=== PATIENT | male | born 1990 | race Caucasian/White ===

== ENCOUNTER 2018-11-14 15:37 | Outpatient (CLI) ==
--- NOTE | 2018-11-15 08:56 | DI ---
EXAM: Three views of the bilateral sacroiliac joints. History: Lumbago with a left-sided sciatica Findings: No acute fracture or dislocation. No abnormal calcifications or radiopaque foreign bodies . The bilateral sacroiliac joints are intact with no significant sclerosis and no erosive osseous ch anges. Impression: Intact bilateral sacroiliac joints
--- NOTE | 2018-11-15 08:58 | DI ---
EXAM: Five views of the lumbar spine. History: Lumbago with left sided sciatica Findings: No acute fracture or subluxation of the lumbar spine. Disc space heights are relatively p reserved. No abnormal calcifications or radiopaque foreign bodies. Impression: Unremarkable exam
== END 2018-11-14 15:38 | disposition home or self-care (01) ==
LOC: RAD 15:37
PROVIDERS: ATTEND Nurse Practitioner Family
DX: M54.42 Lumbago with sciatica, left side (principal)